=== PATIENT | male | born 1980 | race Caucasian/White ===

== ENCOUNTER 2019-07-18 08:15 | Emergency (ER) | payer OTHER ==
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
== END 2019-07-18 09:00 ==
LOC: FB.ED 08:15
DX: F10.120 Alcohol abuse with intoxication, uncomplicated (principal)
CPT/HCPCS: 99282; 99284